=== PATIENT | male | born 1955 | race Caucasian/White ===

== ENCOUNTER 2018-07-16 08:40 | Emergency (ER) | payer OTHER ==
--- NOTE | 2018-07-16 09:05 | ED Physician Documentation ---
PD HPI CHEST PAIN - Stated complaint Stated Complaint: CHEST PRESSURE - Chief complaint Chief Complaint: Cardiac - History obtained from History obtained from: Patient - History of Present Illness Timing - onset: How many days ago (several) Timing - onset during: Light activity Timing - duration: Days (several days of intermittent chest pressure, more consistent today. Has not had vigorous activity, but has not noted change in pain with just walking around the house. He does feel dyspnea with it though.) Timing - details: Gradual onset, Waxing and waning Quality: Pressure, Tightness Location: Substernal, Left chest Radiation: No: Jaw, Neck, Back Improved by: No: Rest Worsened by: No: Exertion, Inspiration, Eating, Movement, Palpation Associated symptoms: Shortness of air. No: Nausea, Feeling faint / dizzy, General Weakness, Palpitations, Cough Similar symptoms before: Diagnosis (had some chest pressure and pain with MN in 2009 (?)) Recently seen: Not recently seen (had stress test with Cardiology about 2 years ago that was okay. No recent heart testing.) Review of Systems Constitutional: reports: Myalgias, Fatigue. denies: Fever, Chills Nose: denies: Rhinorrhea / runny nose, Congestion Throat: denies: Sore throat Cardiac: reports: Chest pain / pressure. denies: Palpitations, Pedal edema, Calf pain Respiratory: reports: Dyspnea. denies: Cough, Wheezing GI: denies: Abdominal Pain, Nausea, Vomiting, Diarrhea, Bloody / black stool Musculoskeletal: denies: Neck pain, Back pain Neurologic: reports: Generalized weakness. denies: Focal weakness, Numbness, Near syncope PD PAST MEDICAL HISTORY - Past Medical History Cardiovascular: Hypertension, High cholesterol, [place] Respiratory: None Endocrine/Autoimmune: None GI: None : None Psych: None Musculoskeletal: None Derm: None - Past Surgical History Past Surgical History: Yes Cardiovascular: Coronary stent HEENT: Tonsil/Adenoidectomy - Present Medications Home Medications: Ambulatory Orders Medication Instructions Recorded Confirmed Aspirin Chewable [[place] 81 mg PO ONCE 07/01/13 07/16/18 Aspirin] Calcium Carbonate/Vitamin D3 600 mg ORAL DAILY 07/01/13 07/16/18 [Calcium 600 + Vit D Caplet] Carvedilol 6.25 mg ORAL BID 07/01/13 07/16/18 Fish Oil/Dha/Epa [Fish Oil 1,200 1,200 mg ORAL DAILY 07/01/13 07/16/18 mg Fish Oil] Lisinopril 2.5 mg ORAL DAILY 07/01/13 07/16/18 Nitroglycerin [Nitrostat] 0.4 mg SL Q5MIN PRN 07/01/13 07/16/18 Pravastatin Sodium 80 mg DAILY 07/01/13 07/16/18 Albuterol Sulf [Ventolin Hfa 1 - 2 puffs INH Q4HR PRN 07/16/18 07/16/18 Inhaler] Isosorbide Mononitrate ER [Imdur] 30 mg PO DAILY #10 tablet 07/16/18 Terazosin [Hytrin] 5 mg PO DAILY 07/16/18 07/16/18 - Allergies Allergies/Adverse Reactions: Allergies Allergy/AdvReac Type Severity Reaction Status Date / Time shellfish derived Allergy Severe Anaphylaxis Verified 07/16/18 08:47 iodine Allergy Respiratory Verified 07/16/18 08:47 Sulfa (Sulfonamide Allergy Respiratory Verified 07/16/18 08:47 Antibiotics) tape Allergy Rash Uncoded 08/10/15 10:05 - Living Situation Living Situation: reports: With spouse/s.o. Living Arrangement: reports: At home - Social History Does the pt smoke?: Yes Smoking Status: Current every day smoker Does the pt drink ETOH?: Yes Does the pt have substance abuse?: No - Family History Family history: reports: CAD - Immunizations Immunizations are current?: Yes - POLST Patient has POLST: No PD ED PE NORMAL - Vitals Vital signs reviewed: Yes - General General: Alert and oriented X 3, No acute distress, Well developed/nourished - HEENT HEENT: Pharynx benign - Neck Neck: Supple, no meningeal sign, No adenopathy, No JVD - Cardiac Cardiac: RRR, No murmur, No rub - Respiratory Respiratory: Clear bilaterally - Abdomen Abdomen: Soft, Non tender - Derm Derm: Normal color, Warm and dry - Extremities Extremities: No tenderness to palpate, Normal ROM s pain, No edema, No calf tenderness / cord - Neuro Neuro: Alert and oriented X 3, No motor deficit, Normal speech Results - Vitals Vitals: Vital Signs - 24 hr 07/16/18 07/16/18 07/16/18 08:43 09:31 09:39 Temperature 36 C L Heart Rate 62 56 L 81 Respiratory 18 12 13 Rate Blood Pressure 156/70 H 113/59 L 88/57 L O2 Saturation 98 97 96 07/16/18 10:56 Temperature Heart Rate 50 L Respiratory 12 Rate Blood Pressure 100/66 O2 Saturation 97 Oxygen O2 Source Room air - EKG (time done) 08:47 Rate: Rate (enter#) (64) Rhythm: NSR [place]: Normal Intervals: Normal LA QRS: Normal Ischemia: Normal ST segments. No: ST elevation c/w ischemia, ST depression - Labs Labs: Laboratory Tests 07/16/18 07/16/18 07/16/18 08:48 08:48 08:48 WBC 5.6 RBC 4.28 L Hgb 13.9 L Hct 40.1 L MCV 93.8 MCH 32.6 H MCHC 34.7 RDW 12.4 Plt Count 179 MPV 8.2 Neut # (Auto) 3.5 Lymph # (Auto) 1.3 L [place] # (Auto) 0.6 Eos # (Auto) 0.2 Baso # (Auto) 0.1 Absolute Nucleated RBC 0.00 Nucleated RBC % 0.1 Sodium 141 Potassium 3.7 Chloride 106 Carbon Dioxide 25 Anion Gap 10.0 BUN 17 Creatinine 1.0 Estimated GFR (MDRD) 75 L Glucose 126 H Calcium 9.4 Magnesium 2.5 Total Bilirubin 0.6 AST 31 ALT 27 Alkaline Phosphatase 62 Troponin I < 0.04 B-Natriuretic Peptide Total Protein 7.1 Albumin 4.2 Globulin 2.9 Albumin/Globulin Ratio 1.4 Lipase 33 07/16/18 09:00 WBC RBC Hgb Hct MCV MCH MCHC RDW Plt Count MPV Neut # (Auto) Lymph # (Auto) [place] # (Auto) Eos # (Auto) Baso # (Auto) Absolute Nucleated RBC Nucleated RBC % Sodium Potassium Chloride Carbon Dioxide Anion Gap BUN Creatinine Estimated GFR (MDRD) Glucose Calcium Magnesium Total Bilirubin AST ALT Alkaline Phosphatase Troponin I B-Natriuretic Peptide 23 Total Protein Albumin Globulin Albumin/Globulin Ratio Lipase - Rads (name of study) chest xray Radiology: Prelim report reviewed (normal), EMP read contemporaneously, See rad report PD MEDICAL DECISION MAKING - ED course Complexity details: reviewed results, re-evaluated patient (feels better after NTG x 1. ), considered differential (Concern for angina, though not exertional. Eval for MN, effusion, CHF, anemia, lytes. ), d/w patient, d/w client support consultant (Dr. Evangelista, on for Dr. Landin, who directs starting Imdur, keep Carvedilol as is since heart rate 60. (I added to have patient hold Lisnopril since concern for lowering BP).) Departure - Departure Disposition: 01 Home, Self Care Clinical Impression: Chest pressure Condition: Stable Record reviewed to determine appropriate education?: Yes Instructions: ED Chest Pain Angina Stable Follow-Up: JAIME RODRIGUEZ MD [Primary Care Provider] - Chevy Mark MD [Physician No Access] - Prescriptions: Isosorbide Mononitrate ER [Imdur] 30 mg PO DAILY #10 tablet Comments: Continue your carvedilol at the low dose. Continue your aspirin. Hold your lisinopril blood pressure medicine. Add indoor which is a long-acting nitrate to help with the chest discomfort presuming it might be angina or impaired blood flow to the heart. Follow-up with your overweaver this coming week. I talked with the on-call overweaver who directed this medication approach. Return if worsening symptoms or call Dr. Mark's office. Discharge Date/Time: 07/16/18 11:42
--- NOTE | 2018-07-16 09:19 | XRAY Report ---
Reason: chest pain Procedure Date: 07/16/2018 Accession Number: [id number] / [id number] Procedure: XR - Chest 1 View X-Ray CPT Code: 33492 FULL RESULT: EXAM: CHEST RADIOGRAPHY EXAM DATE: 07/16/2018 08:59 AM. CLINICAL HISTORY: Chest pain. COMPARISON: 07/01/2013 11:26 PM. TECHNIQUE: 1 view. FINDINGS: Lungs/Pleura: No focal opacities evident. No pleural effusion. No pneumothorax. Mediastinum: Within exam limitations, the cardiomediastinal contour is normal. Other: None. IMPRESSION: Normal single view chest. RADIA
[2018-07-16 09:21] LABS: BASOPHILS # (AUTO) 0.1 10^3/uL (0.0-0.1); BASOPHILS % (AUTO) 1.3 %; EOSINOPHILS # (AUTO) 0.2 10^3/uL (0.0-0.7); EOSINOPHILS % (AUTO) 3.1 %; HGB - HEMOGLOBIN 13.9 g/dL (14.0-18.0); LYMPHOCYTES # (AUTO) 1.3 10^3/uL (1.5-3.5); LYMPHOCYTES % (AUTO) 23.1 %; MEAN CORPUSCULAR HEMOGLOBIN 32.6 pg (27.0-31.0); MEAN CORPUSCULAR HGB CONC 34.7 g/dL (32.0-36.0); MEAN CORPUSCULAR VOLUME 93.8 fL (80.0-94.0); MEAN PLATELET VOLUME 8.2 fL (7.4-11.4); MONOCYTES # (AUTO) 0.6 10^3/uL (0.0-1.0); MONOCYTES % (AUTO) 10.4 %; NEUTROPHILS # (AUTO) 3.5 10^3/uL (1.5-6.6); NEUTROPHILS % (AUTO) 62.1 %; PLT - PLATELET COUNT 179 10^3/uL (130-450); RED BLOOD COUNT 4.28 10^6/uL (4.70-6.10); RED CELL DISTRIBUTION WIDTH 12.4 % (12.0-15.0); WHITE BLOOD COUNT 5.6 x10^3/uL (4.8-10.8)
[2018-07-16] MEDS ORDERED: NITROGLYCERIN SL 0.4 MG TABLET SL STA (09:26)
[2018-07-16 09:34] LABS: ALBUMIN 4.2 g/dL (3.2-5.5); ALBUMIN/GLOBULIN RATIO 1.4 (1.0-2.2); BILIRUBIN,TOTAL 0.6 mg/dL (0.2-1.0); CALCIUM 9.4 mg/dL (8.5-10.3); TOTAL PROTEIN 7.1 g/dL (6.7-8.2)
[2018-07-16 10:20] LABS: MAGNESIUM 2.5 mg/dL (1.7-2.8)
[2018-07-16] MEDS ORDERED: SODIUM CHLORIDE 0.9% 500 ML IV ONE (10:28)
[2018-07-16 10:57] VITALS: BP 100/66
[2018-07-16] MEDS ORDERED: ISOSORBIDE MONONITRATE ER 30 MG TABLET PO STA (11:32)
== END 2018-07-16 11:42 | disposition home or self-care (01) ==
LOC: ED 08:40
DX: R07.89 Other chest pain (principal); I10 Essential (primary) hypertension; F17.200 Nicotine dependence, unspecified, uncomplicated
CPT/HCPCS: 36415; 71045; 80053; 83690; 83735; 83880; 84484; 85025; 93005; 96360; 99284; A9270

== ENCOUNTER 2018-11-24 16:12 | Outpatient (CLI) | payer OTHER ==
--- NOTE | 2018-11-27 07:16 | MRI Report ---
Reason: PARETHESIA OF SKIN Procedure Date: 11/24/2018 Accession Number: [id number] / [id number] Procedure: MRI - Lumbar Spine W/O CPT Code: FULL RESULT: EXAM: MRI LUMBAR SPINE WITHOUT CONTRAST EXAM DATE: 11/24/2018 04:57 PM. CLINICAL HISTORY: Low back pain and left leg radiculopathy. COMPARISON: None. TECHNIQUE: Multiplanar, multisequence T1-weighted and fluid-sensitive sequences of the lumbar spine from T10 to S1 without contrast. Other: None. FINDINGS: Spinal Canal: The conus terminates at L1-L2. The conus medullaris is unremarkable. Alignment: Grade 1-2 anterolisthesis is present at L4-L5 measuring 6 mm. Bone Marrow: Five [id number] lumbar vertebral bodies are assumed. Mild type I Modic endplate changes are present at L4-L5. Tiny chronic Schmorl's nodes are noted at T11-T12, T12-L1, L4-L5, and L5-S1. Disk Levels/Facets: T10-T11: On sagittal images, there is mild bilateral foraminal narrowing due to facet arthropathy and disk height loss. The spinal canal is patent. T11-T12: On sagittal images, the spinal canal and foramina are patent. T12-L1: Mild bilateral facet arthropathy is present without spinal canal or foraminal stenosis. L1-L2: A disk bulge and ligamentum flavum infolding result in mild spinal canal stenosis. There is mild bilateral foraminal narrowing. L2-L3: A disk bulge with facet arthropathy and ligamentum flavum infolding result in mild spinal canal stenosis. The lateral recesses are narrowed but no definite impingement of the descending L3 nerve roots is seen. There is mild bilateral foraminal narrowing, worse on the right. L3-L4: A disk bulge with facet arthropathy and ligamentum flavum infolding result in moderate spinal canal stenosis. The lateral recesses are narrowed but no definite impingement of the descending L4 nerve roots is seen. There is moderate bilateral foraminal narrowing, worse on the right. L4-L5: Grade 1-2 anterolisthesis is present with uncovering of the disk. Superimposed facet arthropathy and ligamentum flavum infolding result in severe spinal canal stenosis with complete obliteration of the CSF and marked crowding of the cauda equina. Moderate fluid is present in the left facet joint. There is severe right and moderate left foraminal narrowing. L5-S1: A disk bulge results in mild spinal canal stenosis. Disk height loss and facet arthropathy result in mild bilateral foraminal narrowing. Musculature: There is mild diffuse fatty atrophy of the posterior paraspinal muscles without intramuscular edema. Other: The partially visualized retroperitoneum is unremarkable. IMPRESSION: 1. Grade 1-2 anterolisthesis is present at L4-L5. Superimposed facet arthropathy and ligamentum flavum infolding result in severe spinal canal stenosis at this level with complete obliteration of the CSF and marked crowding of the cauda equina. 2. Moderate spinal canal stenosis is present at L3-L4 due to similar appearing degenerative changes. 3. Mild type I Modic endplate changes are present at L4-L5. 4. Severe right foraminal narrowing at L4-L5. Comment: The following findings are so common in adults without low back pain that while we report their presence, they must be interpreted with caution and in the context of the clinical situation. (Reference Swativik et al, Spine 2001) Prevalence of findings in patients without low back pain: Disk degeneration (any evidence): 92% Disk desiccation/T2 signal loss: 83% Disk height loss: 56% Disk bulge: 64% Disk protrusion: 32% Annular tear/high intensity zone: 38% RADIA
== END 2018-11-24 16:13 | disposition home or self-care (01) ==
LOC: DI 16:12
PROVIDERS: ATTEND Internal Medicine
DX: M48.061 Spinal stenosis, lumbar region without neurogenic claudication (principal); R20.2 Paresthesia of skin
CPT/HCPCS: 72148

== ENCOUNTER 2022-12-26 23:41 | Inpatient (IN) | payer MEDICARE, OTHER ==
[2022-12-27] MEDS ORDERED: AMPICILLIN/SULBACTAM 3 GM in SODIUM CHLORIDE 0.9% MINIBAG 100 ML IV STA (00:02)
[2022-12-27] MEDS ORDERED: TETANUS/DIPHTHERIA/PERTUSSIS 0.5 ML SYRINGE IM ONE (00:04)
[2022-12-27 00:28] LABS: BASOPHILS # (AUTO) 0.1 10^3/uL (0.0-0.1); BASOPHILS % (AUTO) 0.6 %; EOSINOPHILS # (AUTO) 0.2 10^3/uL (0.0-0.7); EOSINOPHILS % (AUTO) 1.3 %; HCT - HEMATOCRIT 40.8 % (42.0-52.0); HGB - HEMOGLOBIN 13.7 g/dL (14.0-18.0); LYMPHOCYTES # (AUTO) 2.3 10^3/uL (1.5-3.5); LYMPHOCYTES % (AUTO) 18.7 %; MEAN CORPUSCULAR HEMOGLOBIN 31.7 pg (27.0-31.0); MEAN CORPUSCULAR HGB CONC 33.6 g/dL (32.0-36.0); MEAN CORPUSCULAR VOLUME 94.4 fL (80.0-94.0); MEAN PLATELET VOLUME 9.3 fL (7.4-11.4); MONOCYTES # (AUTO) 1.5 10^3/uL (0.0-1.0); NEUTROPHILS # (AUTO) 8.4 10^3/uL (1.5-6.6); NEUTROPHILS % (AUTO) 67.2 %; PLT - PLATELET COUNT 166 10^3/uL (130-450); RED BLOOD COUNT 4.32 10^6/uL (4.70-6.10); WHITE BLOOD COUNT 12.4 x10^3/uL (4.8-10.8)
[2022-12-27 00:36] LABS: ALBUMIN 4.1 g/dL (3.2-5.5); ALBUMIN/GLOBULIN RATIO 1.2 (1.0-2.2); BILIRUBIN,TOTAL 0.7 mg/dL (0.2-1.0); CALCIUM 9.1 mg/dL (8.5-10.3); CREATININE 1.2 mg/dL (0.6-1.2); POTASSIUM 3.8 mmol/L (3.5-5.0); TOTAL PROTEIN 7.5 g/dL (6.7-8.2)
--- NOTE | 2022-12-27 00:47 | ED Physician Documentation ---
PD HPI UPPER EXT INJURY - Stated complaint Stated Complaint: LT HAND INJ - Chief complaint Chief Complaint: Laceration - History obtained from History obtained from: Patient - Additonal information Additional information: Patient is a 67-year-old male presenting for evaluation of a cat bite to the left hand that occurred last night. Patient states that one of his cats bit him as he was trying to put it in a separate area away from the other cats at nighttime. He did wash the hand and applied alcohol to it. He did work outside today but had a glove over the hand. This evening he noticed redness and swelling to the hand and also noticed streaking to his arm. He does report feeling more rundown today but denies any known fever. He is not diabetic. His last tetanus shot was in 2012 Review of Systems Constitutional: denies: Fever Cardiac: denies: Chest pain / pressure Respiratory: denies: Dyspnea GI: denies: Abdominal Pain Skin: reports: Rash, Bite / sting (Cat bite) Musculoskeletal: reports: Extremity swelling PD PAST MEDICAL HISTORY - Past Medical History Cardiovascular: Hypertension, High cholesterol, [place] Respiratory: None Endocrine/Autoimmune: None GI: None : None Psych: None Musculoskeletal: None Derm: None - Past Surgical History Past Surgical History: Yes Cardiovascular: Coronary stent HEENT: Tonsil/Adenoidectomy - Present Medications Home Medications: Ambulatory Orders Medication Instructions Recorded Confirmed Aspirin Chewable [[place] 81 mg PO ONCE 07/01/13 12/27/22 Aspirin] Calcium Carbonate/Vitamin D3 600 mg ORAL DAILY 07/01/13 12/27/22 [Calcium 600 + Vit D Caplet] Fish Oil/Dha/Epa [Fish Oil 1,200 1,200 mg ORAL DAILY 07/01/13 12/27/22 mg Fish Oil] Nitroglycerin [Nitrostat] 0.4 mg SL Q5MIN PRN 07/01/13 12/27/22 Pravastatin Sodium 80 mg DAILY 07/01/13 12/27/22 Albuterol Sulf [Ventolin Hfa 1 - 2 puffs INH Q4HR PRN 07/16/18 12/27/22 Inhaler] Isosorbide Mononitrate ER [Imdur] 30 mg PO DAILY #10 tablet 07/16/18 12/27/22 Terazosin [Hytrin] 5 mg PO DAILY 07/16/18 12/27/22 Tamsulosin HCl [Flomax] 0.4 mg PO DAILY 12/27/22 12/27/22 - Allergies Allergies/Adverse Reactions: Allergies Allergy/AdvReac Type Severity Reaction Status Date / Time shellfish derived Allergy Severe Anaphylaxis Verified 12/26/22 23:52 iodine Allergy Respiratory Verified 12/26/22 23:52 Sulfa (Sulfonamide Allergy Respiratory Verified 12/26/22 23:52 Antibiotics) tape Allergy Rash Uncoded 12/26/22 23:52 - Social History Does the pt smoke?: Yes Smoking Status: Current every day smoker Does the pt drink ETOH?: Yes Does the pt have substance abuse?: No - Immunizations Immunizations are current?: Yes - POLST Patient has POLST: No PD ED PE NORMAL - General General: Alert and oriented X 3, No acute distress, Well developed/nourished - HEENT HEENT: Atraumatic - Neck Neck: Supple, no meningeal sign - Cardiac Cardiac: Strong equal pulses - Respiratory Respiratory: No respiratory distress, Clear bilaterally - Extremities Extremities: Other (Erythema and swelling to dorsum of left hand with 2 puncture type wounds, Erythema extends approximately with lymphangitic spread To mid bicep region, Normal range of motion of Digits, wrist, elbow) Results - Vitals Vitals: Vital Signs - 24 hr 12/26/22 23:46 Temperature 36.4 C L Heart Rate 62 Respiratory 16 Rate Blood Pressure 166/80 H O2 Saturation 99 Oxygen O2 Source Room air - Labs Labs: Microbiology 12/27/22 00:12 Wound Culture - Preliminary Hand - Left Laboratory Tests 12/27/22 12/27/22 00:15 00:15 WBC 12.4 H RBC 4.32 L Hgb 13.7 L Hct 40.8 L MCV 94.4 H MCH 31.7 H MCHC 33.6 RDW 12.0 Plt Count 166 MPV 9.3 Neut # (Auto) 8.4 H Lymph # (Auto) 2.3 [place] # (Auto) 1.5 H Eos # (Auto) 0.2 Baso # (Auto) 0.1 Absolute Nucleated RBC 0.00 Nucleated RBC % 0.0 Sodium 138 Potassium 3.8 Chloride 106 Carbon Dioxide 24 Anion Gap 8.0 BUN 21 H Creatinine 1.2 Estimated GFR (MDRD) 60 L Glucose 121 H Calcium 9.1 Total Bilirubin 0.7 AST 28 ALT 33 Alkaline Phosphatase 65 Total Protein 7.5 Albumin 4.1 Globulin 3.4 Albumin/Globulin Ratio 1.2 PD Medical Decision Making - ED course Complexity details: reviewed results, re-evaluated patient, d/w patient ED course: 1240 - D/W Dr. Del Toro (Orthopedic surgery). He will consult on the patient. Patient is a 67-year-old male presenting for evaluation of cat bite to the left hand with developing redness and swelling. He is afebrile. On exam he does have significant redness and swelling to the dorsum of the left hand with streaking proximally concerning for lymphangitic spread.No fluctuance at this time to suggest abscess. Labs including CBC and chemistries were reviewed with mildly elevated white count of 12. Blood cultures were also obtained as well as a wound culture. Given how quickly this infection has developed and spread In the location of it being the hand with mechanism of a cat bite I believe the patient warrants observation with IV antibiotics.Discussed the case with orthopedic surgery and the hospitalist service. Departure - Departure Disposition: 65 [facility] DC/Xfer Clinical Impression: Cellulitis of right hand, Cat bite, Lymphangitis Condition: Stable Discharge Date/Time: 12/27/22 01:56
[2022-12-27] MEDS ORDERED: NITROGLYCERIN SL 0.4 MG TABLET SL PRN (01:28)
[2022-12-27] MEDS ORDERED: HYDROcod/ACETAM 5/325 MG TABLET PO PRN (01:29)
[2022-12-27] MEDS ORDERED: MORPHINE 2 MG/ML CARPUJECT IVP PRN (01:29)
[2022-12-27] MEDS ORDERED: SODIUM CHLORIDE FLUSH 0.9% 10 ML SYRINGE IVP PRN (01:29)
[2022-12-27] MEDS ORDERED: ONDANSETRON 4 MG/2 ML VIAL IVP PRN (01:29)
--- NOTE | 2022-12-27 01:44 | HISTORY & PHYSICAL EXAMINATION ---
Chief Complaint - Chief Complaint Chief Complaint: Left hand cat bite History of Present Illness - Admitted From Admitted From:: Home - History Obtained From Records Reviewed: Yes History obtained from: Pateint, Patient and ER Doc Exam Limitations: None - History of Present Illness HPI Comment/Other: Patient is a 67-year-old male presenting for evaluation of a cat bite to the left hand that occurred last night. Patient states that one of his cats bit him as he was trying to put it in a separate area away from the other cats at nighttime. He did wash the hand and applied alcohol to it. He did work outside today but had a glove over the hand. This evening he noticed redness and swelling to the hand and also noticed streaking to his arm. He does report feeling more rundown today but denies any known fever. He is not diabetic. 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 [place] Patient complaints of mild pain and tenderness in his lfet hand History - Past Medical History Cardiovascular: reports: Hypertension, High cholesterol, [place] Respiratory: reports: None Endocrine/Autoimmune: reports: None GI: reports: None : reports: None Psych: reports: None Musculoskeletal: reports: None Derm: reports: None MRSA Hx?: No - Past Surgical History Cardiovascular: reports: Coronary stent HEENT: reports: Tonsil/Adenoidectomy - POLST Patient has POLST: No Meds/Allgy - Home Medications Home Medications: Ambulatory Orders Medication Instructions Recorded Confirmed Aspirin Chewable [[place] 81 mg PO ONCE 07/01/13 12/27/22 Aspirin] Calcium Carbonate/Vitamin D3 600 mg ORAL DAILY 07/01/13 12/27/22 [Calcium 600 + Vit D Caplet] Fish Oil/Dha/Epa [Fish Oil 1,200 1,200 mg ORAL DAILY 07/01/13 12/27/22 mg Fish Oil] Nitroglycerin [Nitrostat] 0.4 mg SL Q5MIN PRN 07/01/13 12/27/22 Pravastatin Sodium 80 mg DAILY 07/01/13 12/27/22 Albuterol Sulf [Ventolin Hfa 1 - 2 puffs INH Q4HR PRN 07/16/18 12/27/22 Inhaler] Isosorbide Mononitrate ER [Imdur] 30 mg PO DAILY #10 tablet 07/16/18 12/27/22 Terazosin [Hytrin] 5 mg PO DAILY 07/16/18 12/27/22 Tamsulosin HCl [Flomax] 0.4 mg PO DAILY 12/27/22 12/27/22 - Allergies Allergies/Adverse Reactions: Allergies Allergy/AdvReac Type Severity Reaction Status Date / Time shellfish derived Allergy Severe Anaphylaxis Verified 12/26/22 23:52 iodine Allergy Respiratory Verified 12/26/22 23:52 Sulfa (Sulfonamide Allergy Respiratory Verified 12/26/22 23:52 Antibiotics) tape Allergy Rash Uncoded 12/26/22 23:52 Review of Systems - Musculoskeletal Musculoskeletal: reports: Muscle pain, Limited range of motion Prior Level of Functionality: Independent with ADL Exam - Vital Signs Vital Signs: Vital Signs x48h Temp Pulse Resp BP Pulse Ox 12/26/22 23:46 36.4 C L 62 16 166/80 H 99 - Physical Exam General Appearance: positive: No acute distress, Alert Eyes Bilateral: positive: Normal inspection, PERRL ENT: positive: ENT inspection nml Neck: positive: Nml inspection, Thyroid nml Respiratory: positive: Chest non-tender, No respiratory distress Cardiovascular: positive: Regular rate & rhythm, Systolic murmur Peripheral Pulses: positive: 0 Abdomen: positive: Non-tender, No organomegaly, Nml bowel sounds, No distention Back: positive: Nml inspection Skin: positive: Color nml, No rash, Warm, Dry Extremities: positive: Non-tender, Full ROM, Nml appearance Neurologic/Psychiatric: positive: Oriented x3, Mood/affect nml Sepsis Event Note (H) - Evaluation Current Stage of Sepsis: Ruled out Conclusion/Plan - Problem List (1) Cellulitis of right hand Conclusion/Plan: Pain meds and abx for now (2) Chest pressure Conclusion/Plan: Stable at this time no concerns tolerating well Hx of CABG Contine ASa Overall stable from cardiac standpoint (3) Chest tightness or pressure Conclusion/Plan: IVF Pain meds Iv Unasyn Ortho consulted at this time patient apprecaite the follow up t - Lab Results Fish Bones: 12/27/22 00:15 12/27/22 00:15 - Diagnostic Imaging Results Diagnostic Imaging Results: positive: See rad report Telemedicine Consult Details - Provider Location & Consult Time Telemedicine consultation conducted via videoconferencing?: Yes List names and roles of persons who participated in consult:: Pateint his and me Telemedicine provider location:: [place] Time Telemedicine consult began:: 01:00 Time Telemedicine consult completed:: 02:00
[2022-12-27] MEDS: ACETAMINOPHEN 325 MG TABLET PO PRN ×2 (02:12→19:45)
[2022-12-27] MEDS: SODIUM CHLORIDE 0.9% 1,000 ML IV SCH ×3 (02:12→22:48)
[2022-12-27] MEDS ORDERED: ASPIRIN CHEW 81 MG TABLET PO ONE (03:00)
[2022-12-27 05:38] LABS: BASOPHILS # (AUTO) 0.1 10^3/uL (0.0-0.1); BASOPHILS % (AUTO) 0.6 %; EOSINOPHILS # (AUTO) 0.2 10^3/uL (0.0-0.7); EOSINOPHILS % (AUTO) 1.6 %; HCT - HEMATOCRIT 37.6 % (42.0-52.0); HGB - HEMOGLOBIN 12.6 g/dL (14.0-18.0); LYMPHOCYTES # (AUTO) 2.6 10^3/uL (1.5-3.5); LYMPHOCYTES % (AUTO) 21.3 %; MEAN CORPUSCULAR HEMOGLOBIN 31.4 pg (27.0-31.0); MEAN CORPUSCULAR HGB CONC 33.5 g/dL (32.0-36.0); MEAN CORPUSCULAR VOLUME 93.8 fL (80.0-94.0); MEAN PLATELET VOLUME 9.4 fL (7.4-11.4); MONOCYTES # (AUTO) 1.4 10^3/uL (0.0-1.0); MONOCYTES % (AUTO) 11.5 %; NEUTROPHILS # (AUTO) 7.9 10^3/uL (1.5-6.6); NEUTROPHILS % (AUTO) 64.8 %; PLT - PLATELET COUNT 158 10^3/uL (130-450); RED BLOOD COUNT 4.01 10^6/uL (4.70-6.10); WHITE BLOOD COUNT 12.2 x10^3/uL (4.8-10.8)
[2022-12-27 05:50] LABS: ALBUMIN 3.6 g/dL (3.2-5.5); ALBUMIN/GLOBULIN RATIO 1.4 (1.0-2.2); BILIRUBIN,TOTAL 0.7 mg/dL (0.2-1.0); CALCIUM 8.7 mg/dL (8.5-10.3); CREATININE 1.1 mg/dL (0.6-1.2); POTASSIUM 3.7 mmol/L (3.5-5.0); TOTAL PROTEIN 6.1 g/dL (6.7-8.2)
[2022-12-27] MEDS ORDERED: [UNRECOGNIZED DRUG - OTHER] ORAL SCH (09:00)
[2022-12-27] MEDS ORDERED: CALCIUM CARBONATE ORAL SCH (09:00)
[2022-12-27] MEDS ORDERED: TERAZOSIN 5 MG PO SCH (09:00)
[2022-12-27] MEDS ORDERED: VITAMIN D3 ORAL SCH (09:00)
[2022-12-27] MEDS ORDERED: PRAVASTATIN SODIUM 80 MG ORAL SCH (09:00)
[2022-12-27] MEDS: ISOSORBIDE MONONITRATE ER 30 MG TABLET PO SCH (09:09)
[2022-12-27] MEDS: CHOLECALCIFEROL 400 UNIT TABLET PO SCH (09:09)
[2022-12-27] MEDS: CALCIUM CARB (OYSTER SHELL) 500 MG TABLET PO SCH (09:09)
[2022-12-27] MEDS: TAMSULOSIN 0.4 MG CAPSULE PO SCH (09:12)
[2022-12-27] MEDS: AMPICILLIN/SULBACTAM 3 GM in SODIUM CHLORIDE 0.9% MINIBAG 100 ML IV SCH ×2 (09:23→17:47)
[2022-12-27] MEDS: SODIUM CHLORIDE FLUSH 0.9% 10 ML SYRINGE IVP SCH ×2 (10:19→17:47)
--- NOTE | 2022-12-27 11:00 | PHARMACY PROGRESS NOTE ---
- Best Possible Medication History Admit Date and Time: 12/27/22 0129 Processed by: Pharmacy Medication History completed: Yes Patient Interview: Completed Secondary Source(s): Written medication list, Pharmacy records As the person ultimately responsible for medication therapy, providers are able to order a medication from an existing home medication list in [facility] via the "Reconcile Routine" prior to Confirmation of that medication by manager sales support. Such practice is discouraged except when the physician, in their clinical judgment, deems that a medical need exists for a medication without regard to previous use.
--- NOTE | 2022-12-27 20:41 | PROVIDER PROGRESS NOTE ---
Assessment/Plan - Problem List (1) Cellulitis of left hand Assessment/Plan: He had rapid progression of the swelling, redness and definitely has cellulitis He thinks there is no improvement but there is much less streaking of redness going up from the hand towards the inner elbow today. Plan: Continue with empiric IV antibiotics. I told him we need to wait at least 48 hours to know that the blood cultures are negative. I will order elevation of the left arm above his shoulder, since the swelling has not improved, ice it as needed - Current Meds Current Meds: Current Medications Generic Name Dose Route Start Last Admin Trade Name Freq PRN Reason Stop Dose Admin Acetaminophen 650 mg 12/27/22 01:29 12/27/22 19:45 Acetaminophen 325 Mg Tablet PO 650 mg Q4HR PRN Administration Pain 1 to 4, or Fever Calcium Carbonate/Glycine 500 mg 12/27/22 09:00 12/27/22 09:09 Calcium Carb (Oyster Shell) 500 Mg Tablet PO 500 mg DAILY MALACHI Administration Cholecalciferol 200 unit 12/27/22 09:00 12/27/22 09:09 Cholecalciferol 400 Unit Tablet PO 200 unit DAILY MALACHI Administration Sodium Chloride 1,000 mls @ 100 mls/hr 12/27/22 02:00 12/27/22 12:27 Normal Saline 0.9% IV 100 mls/hr .Q10H MALACHI Administration Ampicillin Sodium/Sulbactam 100 mls @ 200 mls/hr 12/27/22 09:00 12/27/22 19:36 Sodium 3 gm/ Sodium Chloride IV Infused Q8H MALACHI Infusion Isosorbide Mononitrate 30 mg 12/27/22 09:00 12/27/22 09:09 Isosorbide Mononitrate Er 30 Mg Tablet PO 30 mg DAILY MALACHI Administration Sodium Chloride 10 ml 12/27/22 09:00 12/27/22 17:47 Sodium Chloride Flush 0.9% 10 Ml Syringe IVP Not Given 0100,0900,1700 MALACHI Tamsulosin HCl 0.4 mg 12/27/22 09:00 12/27/22 09:12 Tamsulosin 0.4 Mg Capsule PO 0.4 mg DAILY MALACHI Administration - Lab Result Fish Bone Diagrams: 12/28/22 09:44 12/28/22 09:44 Subjective - Subjective Patient Reports: Other (He reports minimal change, there is the same swelling, the same 2 areas of the skin where the bite occurred on the dorsum of the hand.) Objective Vital Signs: Vital Signs - 24 hr 12/26/22 12/27/22 12/27/22 23:46 07:55 15:41 Temperature 36.4 C L 36.9 C 37.0 C Heart Rate 62 Heart Rate [ 59 L 63 Brachial] Respiratory 16 18 18 Rate Blood Pressure 166/80 H Blood Pressure 142/62 H [Left Brachial artery] Blood Pressure 134/68 H [Right Brachial artery] O2 Saturation 99 99 95 Oxygen O2 Source Room air I&O (Last 24 Hrs): Intake and Output Totals x24h 12/25/22 12/26/22 12/27/22 23:59 23:59 23:59 Intake Total 2724.000 Balance 2724.000 General: Alert, Oriented x3 HEENT: Atraumatic, Mucous membr. moist/pink Neck: Supple, No JVD Neuro: Alert, Non Focal Cardiovascular: Regular rate Respiratory: No respiratory distress Abdomen: No tenderness Extremities: Other (L hand dorsum red and swollen, has bite chan, w/ eschars) - Results Results: Laboratory Results WBC 12.2 x10^3/uL (4.8-10.8) H 12/27/22 04:44 RBC 4.01 10^6/uL (4.70-6.10) L 12/27/22 04:44 Hgb 12.6 g/dL (14.0-18.0) L 12/27/22 04:44 Hct 37.6 % (42.0-52.0) L 12/27/22 04:44 MCV 93.8 fL (80.0-94.0) 12/27/22 04:44 MCH 31.4 pg (27.0-31.0) H 12/27/22 04:44 MCHC 33.5 g/dL (32.0-36.0) 12/27/22 04:44 RDW 12.0 % (12.0-15.0) 12/27/22 04:44 Plt Count 158 10^3/uL (130-450) 12/27/22 04:44 MPV 9.4 fL (7.4-11.4) 12/27/22 04:44 Neut # (Auto) 7.9 10^3/uL (1.5-6.6) H 12/27/22 04:44 Lymph # (Auto) 2.6 10^3/uL (1.5-3.5) 12/27/22 04:44 [place] # (Auto) 1.4 10^3/uL (0.0-1.0) H 12/27/22 04:44 Eos # (Auto) 0.2 10^3/uL (0.0-0.7) 12/27/22 04:44 Baso # (Auto) 0.1 10^3/uL (0.0-0.1) 12/27/22 04:44 Absolute Nucleated RBC 0.00 x10^3/uL 12/27/22 04:44 Nucleated RBC % 0.0 /100WBC 12/27/22 04:44 Sodium 139 mmol/L (135-145) 12/27/22 04:44 Potassium 3.7 mmol/L (3.5-5.0) 12/27/22 04:44 Chloride 109 mmol/L (101-111) 12/27/22 04:44 Carbon Dioxide 25 mmol/L (21-32) 12/27/22 04:44 Anion Gap 5.0 (6-13) L 12/27/22 04:44 BUN 17 mg/dL (6-20) 12/27/22 04:44 Creatinine 1.1 mg/dL (0.6-1.2) 12/27/22 04:44 Estimated GFR (MDRD) 67 (>89) L 12/27/22 04:44 Glucose 107 mg/dL (70-100) H 12/27/22 04:44 Calcium 8.7 mg/dL (8.5-10.3) 12/27/22 04:44 Total Bilirubin 0.7 mg/dL (0.2-1.0) 12/27/22 04:44 AST 25 IU/L (10-42) 12/27/22 04:44 ALT 27 IU/L (10-60) 12/27/22 04:44 Alkaline Phosphatase 50 IU/L (42-121) 12/27/22 04:44 Total Protein 6.1 g/dL (6.7-8.2) L 12/27/22 04:44 Albumin 3.6 g/dL (3.2-5.5) 12/27/22 04:44 Globulin 2.5 g/dL (2.1-4.2) 12/27/22 04:44 Albumin/Globulin Ratio 1.4 (1.0-2.2) 12/27/22 04:44 Sepsis Event Note (H) - Evaluation Current Stage of Sepsis: Ruled out
[2022-12-27] MEDS ORDERED: PRAVASTATIN 40 MG TABLET PO SCH (21:00)
[2022-12-27] MEDS ORDERED: TERAZOSIN 1 MG CAPSULE PO SCH (21:00)
[2022-12-28] MEDS: SODIUM CHLORIDE FLUSH 0.9% 10 ML SYRINGE IVP SCH ×2 (00:07→10:28)
[2022-12-28] MEDS: AMPICILLIN/SULBACTAM 3 GM in SODIUM CHLORIDE 0.9% MINIBAG 100 ML IV SCH ×2 (00:25→08:58)
[2022-12-28 08:00] VITALS: BP 146/82
[2022-12-28] MEDS: SODIUM CHLORIDE 0.9% 1,000 ML IV SCH (08:57)
[2022-12-28] MEDS: TAMSULOSIN 0.4 MG CAPSULE PO SCH (08:58)
[2022-12-28] MEDS: CALCIUM CARB (OYSTER SHELL) 500 MG TABLET PO SCH (08:59)
[2022-12-28] MEDS: ISOSORBIDE MONONITRATE ER 30 MG TABLET PO SCH (08:59)
[2022-12-28] MEDS: CHOLECALCIFEROL 400 UNIT TABLET PO SCH (08:59)
[2022-12-28] MEDS: ACETAMINOPHEN 325 MG TABLET PO PRN (09:37)
[2022-12-28 09:48] LABS: BASOPHILS # (AUTO) 0.1 10^3/uL (0.0-0.1); BASOPHILS % (AUTO) 0.6 %; EOSINOPHILS # (AUTO) 0.2 10^3/uL (0.0-0.7); EOSINOPHILS % (AUTO) 2.3 %; HCT - HEMATOCRIT 41.2 % (42.0-52.0); HGB - HEMOGLOBIN 13.7 g/dL (14.0-18.0); LYMPHOCYTES # (AUTO) 1.6 10^3/uL (1.5-3.5); LYMPHOCYTES % (AUTO) 15.4 %; MEAN CORPUSCULAR HEMOGLOBIN 31.8 pg (27.0-31.0); MEAN CORPUSCULAR HGB CONC 33.3 g/dL (32.0-36.0); MEAN CORPUSCULAR VOLUME 95.6 fL (80.0-94.0); MONOCYTES # (AUTO) 1.1 10^3/uL (0.0-1.0); MONOCYTES % (AUTO) 10.6 %; NEUTROPHILS # (AUTO) 7.4 10^3/uL (1.5-6.6); NEUTROPHILS % (AUTO) 70.9 %; PLT - PLATELET COUNT 173 10^3/uL (130-450); RED BLOOD COUNT 4.31 10^6/uL (4.70-6.10); RED CELL DISTRIBUTION WIDTH 12.2 % (12.0-15.0); WHITE BLOOD COUNT 10.5 x10^3/uL (4.8-10.8)
[2022-12-28 09:57] LABS: CALCIUM 8.4 mg/dL (8.5-10.3); CREATININE 1.1 mg/dL (0.6-1.2); POTASSIUM 3.9 mmol/L (3.5-5.0)
--- NOTE | 2022-12-28 10:28 | Discharge Plan ---
Discharge Plan Problem Reviewed?: Yes Disposition: Home, Self Care Condition: Fair Prescriptions: Amox/Clav 875/125 [Augmentin 875/125 Tab] 1 tablet PO Q12H 10 Days #20 tablet Diet: Regular Activity Restrictions: Activity as Tolerated Shower Restrictions: No Driving Restrictions: No Instruction Topics: Cellulitis Dc, ED Bite Cat, ED Lymphangitis Health Concerns: You were bitten by her cat on December 26. You did everything right by washing her hands and applying alcohol to it. But the next day, you had redness and tenderness to the hand and you noticed that there was streaking coming up your arm. You were feeling more rundown but you had no fever. You came to our emergency room and we found you to have a rapidly progressive skin infection. We were very glad you came in to nip this in the bed. Cat bites can grow bacteria called Pasteurella or Capnocytophaga. These are dangerous bacteria that can cause severe infection. You have responded to the antibiotics we gave you to treat those bugs. Your wound culture is preliminary showing possible Pasteurella but we will not know for another day or 2. The redness and streaks that had gone up your arm have gone away. You are left with swelling of your hand. You can flex and bend at the wrist. However flexing at the the knuckles of the hand is impaired. The redness is gone. You are draining pus where you had the bites. Your white cell count has come down to normal. You were 12.4 thousand on admission and you are now 10.5 thousand. You really feel like you can go home. You have no fever, your white cell count is normal, and the infection is under control. Plan of Treatment: Finish antibiotics in the form of Augmentin. Augmentin is the oral substitute for the intravenous drug we were giving you called Patric. The preliminary culture of the wound does show possible Pasteurella. Augmentin should cover this. Because it is involving your hands and the deep tissues of your hand, antibiotic therapy should be a little bit longer than most duration. I am recommending 10 more days of Augmentin by mouth. I am also recommending a probiotic by mouth twice a day while you are on Augmentin. Please see your primary care provider in follow-up. Right now you do not have a designated primary care provider. Our utilization management office to give you a list of PCPs that you could try and see. You could also see if he could establish yourself with the [facility] which is the [facility] outpatient clinic near your home. Their phone number is [phone]. Keep your hand clean and dry. Do not soak in a tub, river, or ocean. You can soak it in Epsom salts for a few minutes twice a day. That would be trying to draw the drainage out of your hand and improve the swelling. If your hand gets more swollen, more hot, exquisitely painful, or red, you need to come back to the hospital. Cat bites can be very dangerous, as you have seen already. Sometimes it would require surgery to open up the wound and drain it. You have not needed that so far. Since it may take you a very long time to establish yourself with a primary care provider office, I would recommend that you follow-up with the walk-in clinic in [place] in the next 1 to 2 weeks to make sure your hand is healing well. Care Goals: To complete antibiotic therapy for this hand infection. I have also asked you to establish yourself with a new primary care provider and make sure run -of-the-mill documentation order such as DURABLE POWER OF CERTIFIED ENERGY MANAGER, power of estate planning attorney, and advance care directive for CODE STATUS. Assessment: Patient is alert, oriented, lucid historian. Able to follow directions. He promises to follow through No Smoking: If you smoke, Please STOP! Call for help.
--- NOTE | 2022-12-28 10:42 | DISCHARGE SUMMARY ---
Discharge Summary Admit Date: 12/27/22 Discharge Date: 12/28/22 Discharging Provider: Margarita Parisi MD Primary Care Provider: He has no PCP for now Code Status: Attempt Resuscitation Condition at Discharge: Fair Discharge Disposition: 01 Home, Self Care - DIAGNOSES Discharge Diagnoses with Status of Each Condition: cellulitis of left hand Cat bite Lymphangitis Leukocytosis - HPI History of Present Illness: Patient is a 67-year-old male presenting for evaluation of a cat bite to the left hand that occurred last night. Patient states that one of his cats bit him as he was trying to put it in a separate area away from the other cats at nighttime. He did wash the hand and applied alcohol to it. He did work outside today but had a glove over the hand. This evening he noticed redness and swell ing to the hand and also noticed streaking to his arm. He does report feeling more rundown today but denies any known fever. He is not diabetic. 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 Final identification and sensitivity needs to be followed up on by PCP or outpatient clinic - HOSPITAL COURSE Hospital Course: He was admitted because of a rapidly progressive cellulitis associated with lymphangitis and an elevated white cell count. The admitting provider did write down that there was a diagnosis of SIRS but by strict criteria he did not meet that diagnosis. But the cellulitis was impressive. He responded to IV Zosyn very nicely. White cell count was 12.4 thousand on admission, and down to 10.5 thousand at the time of discharge. He did not have any temperature spikes during his stay. The lymphangitic redness and streaking resolved. He is able to flex and extend at the wrist normally. All of his soft tissue edema is on the dorsum of his hand with 2 puncture bites. 1 puncture bite is approximately 10 x 8 and irregular [place]. The smaller puncture bite closer to the little finger is approximately 3 mm. There is minimal draining from the larger 1. He can flex and extend at the metacarpals and distal/proximal inner phalangeal join ts but edema causes restriction. He would really like to go home. I have warned him that these bites can be very dangerous. They can "blossom" suddenly and unexpectedly. If he has return of redness, heat, lymphangitic spread, exquisite pain he needs to return to the emergency room. He is discharged in stable condition. Temperature is 36.5. Heart rate 57. Blood pressure 146/82. Respirations 18. 99% on room air. He is 5 feet 6 inches tall, 79 kg. A fatigued appearing middle-aged white male who is alert, oriented, in no acute distress. Neck is supple. Lungs are clear with diminished breath sounds at the bases. No respiratory distress. Irregular rate and rhythm. During his stay he had no tachycardia or tachypnea. And abdomen that is soft, nontender, with normal bowel sounds. No masses. Extremities are remarkable for the above swollen left dorsum hand. He is alert, oriented to person place and time. Lucid communication style. Intact symptom structure. Greater than 30 minutes spent coordinating discharge. He does not have a primary care provider. He does have a carriage setter and urologist. I have strongly [place] of primary care providers was given to him by utilization review. I have also given him the phone number of the [facility] [place] the [place] to see if he would like to go through that route. Discharge antibiotic is Augmentin 875/125 p.o. twice daily for 10 more days.I asked him to take an [id number] probiotic since Augmentin can give you diarrhea. He declines any opioid pain medicine and says that Tylenol works well for him. This document was made in part using voice recognition software. While efforts are made to proofread this document, sound alike and grammatical errors may occur. - ALLERGIES Allergies/Adverse Reactions: Allergies Allergy/AdvReac Type Severity Reaction Status Date / Time shellfish derived Allergy Severe Anaphylaxis Verified 12/26/22 23:52 iodine Allergy Respiratory Verified 12/26/22 23:52 Sulfa (Sulfonamide Allergy Respiratory Verified 12/26/22 23:52 Antibiotics) tape Allergy Rash Uncoded 12/26/22 23:52 - MEDICATIONS Home Medications: Ambulatory Orders Medication Instructions Recorded Confirmed Aspirin Chewable [[place] 81 mg PO ONCE 07/01/13 12/27/22 Aspirin] Calcium Carbonate/Vitamin D3 600 mg ORAL DAILY 07/01/13 12/27/22 [Calcium 600 + Vit D Caplet] Fish Oil/Dha/Epa [Fish Oil 1,200 1,200 mg ORAL DAILY 07/01/13 12/27/22 mg Fish Oil] Nitroglycerin [Nitrostat] 0.4 mg SL Q5MIN PRN 07/01/13 12/27/22 Pravastatin Sodium 80 mg DAILY 07/01/13 12/27/22 Albuterol Sulf [Ventolin Hfa 1 - 2 puffs INH Q4HR PRN 07/16/18 12/27/22 Inhaler] Isosorbide Mononitrate ER [Imdur] 30 mg PO DAILY #10 tablet 07/16/18 12/27/22 Terazosin [Hytrin] 5 mg PO DAILY 07/16/18 12/27/22 Ezetimibe [Zetia] 1 tab PO DAILY 12/27/22 12/27/22 Tamsulosin HCl [Flomax] 0.4 mg PO DAILY 12/27/22 12/27/22 Acetaminophen [Tylenol] 650 mg PO Q4HR PRN tab 12/28/22 Amox/Clav 875/125 [Augmentin 1 tablet PO Q12H 10 Days #20 tablet 12/28/22 875/125 Tab] - LABS Result Diagrams: 12/28/22 09:44 12/28/22 09:44 - SEPSIS Current Stage of Sepsis: Ruled out
== END 2022-12-28 12:00 | disposition home or self-care (01) | DRG 603 ==
LOC: ED 23:41 → MS2 12-27 01:29
PROVIDERS: ADMIT Internal Medicine; ATTEND Specialist
DX: L03.114 Cellulitis of left upper limb (principal); S61.452A Open bite of left hand, initial encounter; W55.01XA Bitten by cat, initial encounter; D72.829 Elevated white blood cell count, unspecified; F17.200 Nicotine dependence, unspecified, uncomplicated; I10 Essential (primary) hypertension; E78.00 Pure hypercholesterolemia, unspecified; I25.2 Old myocardial infarction; R07.89 Other chest pain; Z95.1 Presence of aortocoronary bypass graft; Z95.5 Presence of coronary angioplasty implant and graft
CPT/HCPCS: 36415; 80048; 80053; 85025; 87040; 87070; 87205; 90715; A9270; 87077; 87181; 90471; 96365; 99284

== ENCOUNTER 2024-03-23 10:28 | Outpatient (CLI) | payer MEDICARE, OTHER ==
--- NOTE | 2024-03-25 02:54 | CT Report ---
PROCEDURE: Lung Cancer Screen INDICATIONS: FORMER SMOKER TECHNIQUE: A CT scan of the chest was performed. Intravenous contrast media was not administered. Images were re corded and evaluated at appropriate window settings. Reformats: axial MIP of the chest, coronal and s agittal. For radiation dose reduction, the following was used: automated exposure control, adjustment of mA and/or kV according to patient size. COMPARISON: Chest radiograph dated 07/16/2018. FINDINGS: Image quality: Excellent. Prior cancer history: Unsure. Lungs and pleura: No pleural effusions. No pneumothorax. 6 x 3 mm oval nodule is seen adjacent to right major fissure series 4 image 53. 3 mm solid nodule is seen in lateral right lower lobe series 4 image 71. Mediastinum: Heart size is normal. No pericardial effusion. No large vessel abnormality. No mediastin al adenopathy by size criteria. Two vessel coronary artery calcifications. Chest wall and lower neck: Thyroid is unremarkable. No axillary or supraclavicular adenopathy by size . Bones: No aggressive osseous abnormality. Upper Abdomen: Unremarkable. IMPRESSION: Lung RAD: 3 - Probably Benign. Recommendation: Continue screening in 6 Months with LDCT Non-Lung Significant Findings: Coronary Arterial Calcification - Moderate or Severe. Reviewed by: Selvin Manzano MD on 03/25/2024 2:53 AM PDT Approved by: Selvin Manzano MD on 03/25/2024 2:53 AM PDT Station ID: [id number]
== END 2024-03-23 10:29 | disposition home or self-care (01) ==
LOC: DI 10:28
PROVIDERS: ATTEND Nurse Practitioner Family
DX: Z12.2 Encounter for screening for malignant neoplasm of respiratory organs (principal); I25.10 Atherosclerotic heart disease of native coronary artery without angina pectoris; Z87.891 Personal history of nicotine dependence